=== PATIENT | male | born 1960 | race Caucasian/White ===

== ENCOUNTER 2023-01-24 08:58 | Outpatient (CLI) | payer OTHER, SELFPAY ==
--- NOTE | 2023-01-24 09:17 | ECG_ITS ---
Measurements Intervals [place] Rate: 91 P: OR: 0 QRS: 40 QRSD: 101 T: -3 QT: 356 QTc: 438 Interpretive Statements ATRIAL FIBRILLATION ABNORMAL RHYTHM ECG NO PREVIOUS ECG AVAILABLE FOR COMPARISON Electronically Signed On 01-24-2023 11:36:31 REGIONAL MEDICAL DIRECTOR by Yung Cantrell M.D.
== END 2023-01-24 08:59 | disposition home or self-care (01) ==
PROVIDERS: PCP Family Medicine; Visit Provider Family Medicine
DX: I48.91 Unspecified atrial fibrillation (principal)
CPT/HCPCS: 93005